=== PATIENT | male | born 2005 | race Caucasian/White ===

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

== ENCOUNTER 2025-02-26 12:57 | Emergency (ER) | payer OTHER, SELFPAY ==
[2025-02-26 13:45] VITALS: BP 131/70; PULSE 83; RESP 18; TEMP 36.3; O2SAT 99; BMI 22.2
--- NOTE | 2025-02-26 13:50 | ED.SKABFB ---
HPI - Skin/Abscess/Foreign Bdy General Chief complaint: Skin/Abscess/Foreign Body Stated complaint: poison cristy Time Seen by Provider: 02/26/25 13:50 Source: patient, RN notes reviewed and old records reviewed Mode of arrival: ambulatory History of Present Illness ED Provider: Vickie Mahan PA-C HPI narrative: 20-year-old male no significant past medical history presenting to the ED complaining of poison cristy to face, behind bilateral ears, neck, and upper extremities s/p fishing 2 days ago. Denies known new exposures/allergens, SOB, throat closing sensation, new medication Related Data Previous Rx's ?Medication ?Instructions ?Recorded metoprolol succinate 25 mg 25 mg PO DAILY #60 tabs 08/05/22 tablet,extended release 24 hr (Toprol XL) cetirizine 10 mg capsule (Zyrtec) 10 mg PO DAILY PRN allergy 02/26/25 symptoms #14 caps diphenhydramine HCl 25 mg capsule 25 mg PO TID PRN allergic reaction 02/26/25 (Benadryl) #14 caps hydrocortisone 1 % topical cream 1 appl topical BID PRN rash #28.4 02/26/25 (Anti-Itch (hydrocortisone)) grams prednisone 20 mg tablet 40 mg (2 x 20 mg) PO DAILY 5 days 02/26/25 #10 tabs Allergies Allergy/AdvReac Type Severity Reaction Status Date / Time No Known Allergies Allergy Verified 02/26/25 13:47 Review of Systems Review of Systems: Yes all other systems are reviewed and are negative Constitutional: Constitutional: Reports as per [facility] Past Medical History Attestation statement: The following information was validated with the patient. Source: old records reviewed Medical History No pertinent past medical history Surgical History No pertinent past surgical history Family History Family History Maternal Aunt Heart failure Coronary artery disease, Onset Age: 33 Maternal Grandmother Coronary artery disease Maternal Grandfather Heart failure Social History Social History Household Members: Family Housing: House Do you presently have visiting nurse or other home services: No Alcohol intake: never Patient Tobacco Use Status: Never used Tobacco e-Cigarette/Vaping Use: Never Used Second Hand Smoke Exposure: No Advance Directives: No Advance Directives Information Provided: No service: No Current occupational status: student Physical Exam Vital Signs: Vital Signs: Last Vital Signs Temp 97.3 F 02/26/25 13:45 Pulse 83 02/26/25 13:45 Resp 18 02/26/25 13:45 BP 131/70 02/26/25 13:45 Pulse Ox 99 02/26/25 13:45 O2 Del Method Room Air 02/26/25 13:45 BMI result Body Mass Index 22.2 Const: General: cooperative, healthy appearing and no acute distress Orientation/consciousness: patient oriented x3 Limitations: no limitations HEENT: Head: Yes normal to inspection and Yes atraumatic Ears: hearing grossly normal bilaterally General nose exam: Normal external nose present Face and sinus: Yes normal facial exam Mouth: Normal oral and palatal mucosa present and no drooling Throat: Yes posterior oropharynx normal, Yes tonsils normal, Yes uvula midline, No peritonsillar mass, No uvula laterally displaced and No uvular edema Eyes: General: appearance normal, both eyes and all related structures EOM: EOMs intact bilaterally Neck: Neck: Yes normal visual inspection and Yes no meningeal signs Resp: Effort & Inspection: normal respiratory effort and no respiratory distress Cardio: Rate: regular rate Skin: Other: +poison cristy rash with with vesicles & erythema noted to face, b/l UE, behind ears & neck. No ulceration, no sloughing, no palm/sole involvement. No mucous membrane involvement Wounds: no wounds Neuro: General: patient oriented x3, tone normal and no meningeal signs Cranial nerves: Yes CN's II-XII intact bilaterally Gait exam (Neuro): Normal gait present Extrem: General: Yes normal to inspection Medical Decision Making Medical Decision Making MDM Narrative: 20-year-old male no significant past medical history presenting to the ED complaining of poison cristy to face, behind bilateral ears, neck, and upper extremities s/p fishing 2 days ago. On exam vital signs stable, NAD, nontoxic appearing, physical exam as noted above. No palm/sole or mucous membrane involvement. Consistent with poison cristy. No evidence of SJS/TENs or overlying cellulitis Plan: P.o. prednisone, topical remedies, p.o. Benadryl Please refer to course for remaining clinical decision making, interpretation of labs/imaging results, and discussions with consultants and/or family members. Differential Diagnosis Differential Diagnoses: The differential diagnosis associated with the presentation includes As above External Record Review External record reviewed: Inpatient record, Office record, Outpatient record, Prior outpatient labs, Prior outpatient radiology, Primary care record and Outside ED record Tests considered The following testing was considered but not selected: As above Prescription Management I considered prescription management with: Other Chronic Conditions Patient?s care impacted by: Other Discharge Plan Discharge Clinical Impression: Poison cristy Patient Disposition: Home, Self-Care Instructions: Poison Cristy (ED) Additional Instructions: Please apply topical hydrocortisone cream to your rash only. Avoid application diffusely over face, only apply to rash, potentially can cause skin atrophy In addition take Benadryl and Zyrtec. Benadryl will make you drowsy Prednisone as an oral steroid Take these medications until completion If symptoms persist or worsen areas begins to look infected, you are spiking fevers, have difficulty or inability to swallow or shortness of breath return to the ED Prescriptions: New prednisone 20 mg tablet 40 mg PO DAILY 5 Days Qty: 10 0RF Zyrtec 10 mg capsule 10 mg PO DAILY PRN (Reason: allergy symptoms) Qty: 14 0RF diphenhydramine HCl [Benadryl] 25 mg capsule 25 mg PO TID PRN (Reason: allergic reaction) Qty: 14 0RF hydrocortisone [Anti-Itch (HC)] 1 % cream 1 appl topical BID PRN (Reason: rash) Qty: 28.4 0RF No Action metoprolol succinate [Toprol XL] 25 mg tablet extended release 24 hr 25 mg PO DAILY Qty: 60 4RF Referrals: Genet Apodaca MD [Primary Care Provider] - 5 days Print Language: Armenian
[2025-02-26 14:26] VITALS: BP 131/70; PULSE 83; RESP 18; TEMP 36.3; O2SAT 99
== END 2025-02-26 14:26 | disposition home or self-care (01) ==
PROVIDERS: Emergency Provider Emergency Medicine; PCP Pediatrics
DX: L23.7 Allergic contact dermatitis due to plants, except food (principal)
CPT/HCPCS: 99282; 99283

== ENCOUNTER 2025-09-21 16:52 | Emergency (ER) | payer OTHER, SELFPAY ==
--- NOTE | ~2025-09-21 | XR_ITS ---
CLINICAL HISTORY: cp, cough 2 view chest x-ray. Comparison: None Findings: No consolidation or effusion. Cardiac and mediastinal contours are unremarkable. Bones unremarkable. Impression: 1. No acute pulmonary disease. This document has been electronically signed by: Rohit Kuhn MD on 09/21/2025 17:36:09
--- NOTE | 2025-09-21 16:54 | ECG_ITS ---
Test Reason : CP Blood Pressure : */* mmHG Vent. Rate : 120 BPM Atrial Rate : 120 BPM P-R Int : 126 ms QRS Dur : 80 ms QT Int : 284 ms P-R-T Axes : 35 58 24 degrees QTcB Int : 401 ms Sinus tachycardia Nonspecific T wave abnormality Borderline ECG When compared with ECG of 14-Jun-2022 17:16, Questionable change in QRS axis Referred By: Generic ED Physician Electronically Signed By: JILL ESPINAL
[2025-09-21 16:59] VITALS: BP 121/82; PULSE 126; RESP 18; TEMP 37.7; O2SAT 99; BMI 23.6
[2025-09-21 17:16] LABS: MANUAL DIFF FLAG NO
[2025-09-21 17:19] LABS: Hematocrit 45.9 % (42.0-52.0); Hemoglobin 16.0 g/dl (14.0-18.0); Imm Gran Abs Auto 0.02 X10*3/uL (0.00-0.03); Imm Gran Pct Auto 0.3 % (0.0-0.4); Lymphocytes Absolute Auto 0.6 X10*3/uL (1.2-4.9); Mean Corpuscular HGB Conc 34.9 g/dl (31.0-36.0); Mean Corpuscular Hemoglobin 30.0 pg (27.0-33.0); Mean Corpuscular Volume 86.0 fL (80.0-98.0); NRBC Abs Auto 0.000 X10*3/uL (0.0-0.012); NRBC Pct Auto 0.0 /100WBC (0.0-0.2); Platelet Count 211 X10*3/uL (160-400); Red Blood Count 5.34 X10*6/uL (4.60-5.80); White Blood Count 7.5 X10*3/uL (4.8-10.8)
[2025-09-21 17:32] LABS: Alanine Aminotransferase 21 U/L (0-40); Albumin Level 4.8 g/dL (3.5-5.0); Alkaline Phosphatase 75 U/L (39-117); Anion Gap 11 (12-20); Aspartate Amino Transferase 22 U/L (5-37); Blood Urea Nitrogen 10 mg/dL (9-16); Calcium 9.3 mg/dL (8.4-10.2); Carbon Dioxide 27 mmol/L (22-29); Chloride 106 mmol/L (96-108); Creatinine Clr Calc Pharmacy 120.6; Estimated Glomerular Filt Rate > 60; Magnesium 2.0 mg/dL (1.6-2.6); Potassium 4.0 mmol/L (3.3-5.1); Sodium 140 mmol/L (135-145); Total Protein 7.6 g/dL (6.5-8.0)
[2025-09-21 17:58] LABS: Resp Syncy Virus RNA Qual PCR NEGATIVE (Negative); SARS COV2 PCR INHOUSE NEGATIVE (Negative)
[2025-09-21 18:33] LABS: Troponin-I High Sensitivity < 2.7 ng/L (<3.5-35.0)
[2025-09-21 18:36] VITALS: BP 134/83; PULSE 114; RESP 13; TEMP 37.3; O2SAT 99
--- NOTE | 2025-09-21 18:39 | ED_ITS ---
HPI - Chest Pain General Chief Complaint: Chest Pain Stated Complaint: Chest pain Time Seen by Provider: 09/21/25 18:19 Source: patient Mode of arrival: ambulatory Limitations: no limitations History of Present Illness ED Provider: Dr. Lance [facility] narrative: 20-year-old male presented hospital today for evaluation chest pain. Fever at home with cough. Patient stated the chest pain is worsened when a cough. 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 No [id number] medicine taken. Related Data Previous Rx's ?Medication ?Instructions ?Recorded metoprolol succinate 25 mg 25 mg PO DAILY #60 tabs tablet,extended release 24 hr (Toprol XL) cetirizine 10 mg capsule (Zyrtec) 10 mg PO DAILY PRN a llergy 02/26/25 symptoms #14 caps diphenhydramine HCl 25 mg capsule 25 mg PO TID PRN all ergic reaction 02/26/25 (Benadryl) #14 caps hydrocortisone 1 % topical cream 1 appl topical BID OK N rash #28.4 02/26/25 (Anti-Itch (hydrocortisone)) grams prednisone 20 mg tablet 40 mg (2 x 20 mg) PO DAILY 5 days 02/26/25 #10 tabs Allergies Allergy/AdvReac Type Severity Reaction Status Date / Time No Known Allergies Allergy Verified 09/21/25 17:01 Review of Systems 2 Review of Systems: Pertinent review of systems as mentioned in HPI. All other system otherwise negative. REPLACED BY [facility] Past Medical History REPLACED BY [facility] Narrative: Medical history as mentioned in HPI Medical History No pertinent past medical history Surgical History No pertinent past surgical history Family History Family History Maternal Aunt Heart failure Coronary artery disease, Onset Age: 33 Maternal Grandmother Coronary artery disease Maternal Grandfather Heart failure Social History Social History Household Members: Family Housing: House Do you presently have visiting nurse or other home services: No Alcohol intake: never Patient Tobacco Use Status: Never used Tobacco Smoked in Last 30 Days: No e-Cigarette/Vaping Use: Never Used Second Hand Smoke Exposure: No Use of substances other than those prescribed or required for medical reasons: No Advance Directives: No Advance Directives Information Provided: No service: No Current occupational status: student Physical Exam 2 Exam: Exam: General: Pleasant, no distress, interacting appropriately Head: Normacephalic, atraumatic ENT: oral mucosa moist, neck supple, no tracheal deviation Cardiovascular: Tachycardic rate, regular rhythm, no murmurs, rubbing, gallops Respiratory: CTAB, no wheeze, rales, rhonchi Extremities: No limb pain or swelling, no calf tenderness Neurological: Awake and alert, no facial droop noted Skin: Warm and dry Psychiatric: Appropriate mood and thoughts Vital Signs: Vital Signs: Last Vital Signs Temp 98.9 F 09/21/25 21:52 Pulse 110 H 09/21/25 21:52 Resp 17 09/21/25 21:52 BP 113/64 09/21/25 21:52 Pulse Ox 96 09/21/25 21:52 O2 Del Method Room Air 09/21/25 21:52 BMI result Body Mass Index 23.6 Medications Administered Discontinued Medications Generic Name Dose Route Start Last Admin Trade Name Freq PRN Reason Stop Dose Admin Acetaminophen 975 mg 09/21/25 19:51 09/21/25 19:59 Acetaminophen 325 Mg Tablet PO 09/21/25 19:52 975 mg ONCE STA Administration Sodium Chloride 1,000 mls @ 999 mls/hr 09/21/25 20:30 09/21/25 22:32 Ns IV 09/21/25 21:30 Infused .Q1H1M JUSTIN Infusion Ibuprofen 400 mg 09/21/25 19:51 09/21/25 19:59 Ibuprofen 400 Mg Tablet PO 09/21/25 19:52 400 mg ONCE ONE Administration Ketorolac Tromethamine 15 mg 09/21/25 20:17 09/21/25 20:56 Ketorolac Tromethamine 15 Mg/Ml Vial IVPUSH 09/21/25 20:18 15 mg ONCE ONE Administration Medical Decision Making Medical Decision Making [facility] Narrative: This is a 20-year-old male presented hospital today for evaluation of chest pain fever and cough. Patient is positive for flu. Chest x-ray is unremarkable. Patient is tachycardic and febrile at this time. Tylenol Motrin will be given to the patient. We will plan to give patient a bolus IV fluid. We will reassess patient after. Patient appears to be well appearing. Troponins negative here. No concern of myocarditis Feeling better. Heart rates down in the 90s at this time. No longer tachycardic. Patient will be discharged. Fever has resolved. Differential Diagnosis Differential Diagnoses: The differential diagnosis associated with the presentation includes Flu, viral pneumonia, viral infection, myocarditis Lab Data MDM Lab Attestation statement: I reviewed the patient's lab results. 09/21/25 17:10 09/21/25 17:10 Labs: Lab Results 09/21/25 09/21/25 Range/Units 17:07 17:10 WBC 7.5 (4.8-10.8) X10*3/uL RBC 5.34 (4.60-5.80) X10*6/uL Hgb 16.0 (14.0-18.0) g/dl Hct 45.9 (42.0-52.0) % MCV 86.0 (80.0-98.0) fL MCH 30.0 (27.0-33.0) pg MCHC 34.9 (31.0-36.0) g/dl RDW 13.2 (11.0-16.0) % Plt Count 211 (160-400) X10*3/uL MPV 9.3 L (9.4-12.4) fL Immature Gran % (Auto) 0.3 (0.0-0.4) % Neut % (Auto) 76.9 H (45-73) % Lymph % (Auto) 8.5 L (20-40) % Brooke % (Auto) 12.9 H (2-11) % Eos % (Auto) 1.1 (0-4) % Baso % (Auto) 0.3 (0-2) % Lymph # (Auto) 0.6 L (1.2-4.9) X10*3/uL Brooke # (Auto) 1.0 (0.1-1.2) X10*3/uL Eos # (Auto) 0.1 (0.0-0.4) X10*3/uL Baso # (Auto) 0.0 (0.0-0.2) X10*3/uL Abs Immat Gran (auto) 0.02 (0.00-0.03) X10*3/uL Absolute Neuts (auto) 5.7 (2.0-8.3) x10*3/uL Absolute Nucleated RBC 0.000 (0.0-0.012) X10*3/uL Nucleated RBC % (auto) 0.0 (0.0-0.2) /100WBC Sodium 140 (135-145) mmol/L Potassium 4.0 (3.3-5.1) mmol/L Chloride 106 (96-108) mmol/L Carbon Dioxide 27 (22-29) mmol/L Anion Gap 11 L (12-20) BUN 10 (9-16) mg/dL Creatinine 0.96 (0.5-1.4) mg/dL Estim Creat Clear Calc 120.6 Estimated GFR > 60 Random Glucose 104 (60-115) mg/dL Calcium 9.3 D (8.4-10.2) mg/dL Magnesium 2.0 (1.6-2.6) mg/dL Total Bilirubin 0.5 (0.0-1.0) mg/dL AST 22 (5-37) U/L ALT 21 (0-40) U/L Alkaline Phosphatase 75 (39-117) U/L Troponin I High Sens < 2.7 (<3.5-35.0) ng/L Total Protein 7.6 (6.5-8.0) g/dL Albumin 4.8 (3.5-5.0) g/dL Influenza Type A (PCR) POSITIVE A (Negative) Influenza Type B (PCR) NEGATIVE (Negative) RSV RNA Qual (PCR) NEGATIVE (Negative) SARS-CoV-2 RNA (RT-PCR) NEGATIVE (Negative) Independent Interpretation I performed an independent interpretation of an: Plain X-Ray Radiology Impression Discussion of test interpretation with radiology: I have reviewed the radiologist's reading. Discharge Plan Discharge Clinical Impression: Flu Patient Disposition: Home, Self-Care Instructions: Influenza (ED) Additional Instructions: Continue supportive treatment with tylenol and motrin to take. Prescriptions: No Action prednisone 20 mg tablet 40 mg PO DAILY 5 Days Qty: 10 0RF Zyrtec 10 mg capsule 10 mg PO DAILY PRN (Reason: allergy symptoms) Qty: 14 0RF diphenhydramine HCl [Benadryl] 25 mg capsule 25 mg PO TID PRN (Reason: allergic reaction) Qty: 14 0RF hydrocortisone [Anti-Itch (HC)] 1 % cream 1 appl topical BID PRN (Reason: rash) Qty: 28.4 0RF metoprolol succinate [Toprol XL] 25 mg tablet extended release 24 hr 25 mg PO DAILY Qty: 60 4RF Stand Alone Forms: Work/School Release Print Language: Cuban
[2025-09-21 19:51] VITALS: BP 124/73; PULSE 122; RESP 18; TEMP 39.2; O2SAT 98
--- NOTE | 2025-09-21 20:02 | PC.NURSE ---
NAD. resting/sleeping. ST on monitor. given fluids and encouraged to drink as much as possible. awaits provider.
[2025-09-21 21:52] VITALS: BP 113/64; PULSE 110; RESP 17; TEMP 37.2; O2SAT 96
== END 2025-09-21 23:16 | disposition home or self-care (01) ==
PROVIDERS: Emergency Provider Student in an Organized Health Care Education/Training Program; PCP Pediatrics
DX: J10.1 Influenza due to other identified influenza virus with other respiratory manifestations (principal); Z03.818 Encounter for observation for suspected exposure to other biological agents ruled out
CPT/HCPCS: 71046; 80053; 83735; 84484; 85025; 87637; 93005; 96361; 96374; 99284; 99285; J1885

== ENCOUNTER → 2025-09-21 16:54 | Outpatient (BNV) | payer OTHER, SELFPAY | PROVIDERS: Emergency Provider Student in an Organized Health Care Education/Training Program; PCP Pediatrics; Visit Provider Internal Medicine | DX: R00.0 Tachycardia, unspecified (principal) | CPT/HCPCS: 93010 ==

== ENCOUNTER → 2025-09-21 17:27 | Outpatient (BNV) | payer OTHER, SELFPAY | PROVIDERS: PCP Pediatrics; Visit Provider Radiology Diagnostic Radiology | DX: R07.9 Chest pain, unspecified (principal); R05.9 Cough, unspecified | CPT/HCPCS: 71046 ==